=== PATIENT | male | born 1990 | race Two or more races ===

== ENCOUNTER → 2016-07-26 | Outpatient (CLI) | payer BC ==
[~2016-07-26] MED LIST: FLEXERIL5 MG PO; KEFLEX500 MG PO; NAPROSYN500 MG PO; NORCO 5/3251 TABLET PO; ULTRAM50 MG PO
== END | disposition home or self-care (01) ==
LOC: RES 07-17 10:00
DX: R06.09 Other forms of dyspnea (principal)
CPT/HCPCS: 94010; 94070; 94726; 94729